=== PATIENT | female | born 1970 | race Caucasian/White ===

== ENCOUNTER 2016-06-05 16:30 | Observation (INO) | payer OTHER, MEDICAID ==
[~2016-06-05] VITALS: Ht 149.9 cm; Wt 77.0 kg
[~2016-06-05 16:30] MED LIST: BACL10TA; BENA25TA8 PO; CETI5SOL PO; HYDR-3533 PO; LEVO.025 PO; MOBI7.5T PO; PRAV10 PO; PRED20 PO; PROZ20CA11 PO; ZOLP1TAB32 PO
[2016-06-05 16:43] VITALS: BP_SYST 136; BP_SYST 153; BP_DIAS 85; BP_DIAS 87; PULSE 72; RESP 18; TEMP 98.1; O2SAT 96
[2016-06-05] MEDS ORDERED: ASPIRIN 81 MG CHEW TAB PO ONE (17:00)
[2016-06-05] MEDS ORDERED: SODIUM CHLORIDE 0.9% FLUSH 5 ML FLUSH IVF PRN ×2 (17:00→19:30)
[2016-06-05] MEDS ORDERED: PRAV20TA2 PO (17:02)
[2016-06-05] MEDS ORDERED: ZYRT10TA PO (17:02)
[2016-06-05] MEDS ORDERED: BACL10TA PO (17:02)
[2016-06-05] MEDS ORDERED: MOBI15TA PO (17:02)
[2016-06-05] MEDS ORDERED: PROZ20CA11 PO (17:02)
[2016-06-05] MEDS ORDERED: AMBI10TA PO (17:02)
[2016-06-05] MEDS ORDERED: HYDR-3533 PO (17:02)
[2016-06-05] MEDS ORDERED: LEVO50TA4 PO (17:02)
--- NOTE | 2016-06-05 17:18 | PD ---
HPI Chief Complaint: Chest Pain Time Seen by Provider: 16:54 Travel History International Travel<30 days: No Contact w/Intl Traveler<30days: No Traveled to known affect area: No History of Present Illness HPI 38-year-old female presents intermittent chest pain over the past month. Patient states her pain started approximately an hour and half prior to arrival was heavy in the middle of her chest radiating down her left arm and having some numbness tingling the left arm. Patient has a history of diabetes and hyperlipidemia. She has been followed emergency medcl emt Dr. Osuna and states her stress test last week and was referred for an exercise stress test which she completed and this supposed to have a repeat nuclear images obtained of her heart in 2 days. Patient cannot clarify further doing rest or stress images. Patient states her pain is currently resolved. She took aspirin 162 mg prior to arrival by EMS. She also endorses mild nausea and mild shortness of breath. PFSH Past Medical History Arthritis: Yes Asthma: No Autoimmune Disease: No Anxiety: Yes Depression: Yes Heart Rhythm Problems: No Cancer: No Cardiovascular Problems: No High Cholesterol: No Chemotherapy: No Chest Pain: No COPD: No Diabetes: Yes Patient Takes Glucophage: No Diminished Hearing: No Endocrine: No Gastrointestinal Disorders: No GERD: Yes Genitourinary: No Hepatitis: No Hiatal Hernia: Yes Hypertension: No Immune Disorder: No Implanted Vascular Access Dvce: No Medical other: No Musculoskeletal: Yes Neurologic: No Psychiatric: No Reproductive: No Respiratory: No Immunizations Current: Yes Myocardial Infarction: No Radiation Therapy: No Sleep Apnea: No Thyroid Disease: Yes Ulcer: Yes Tetanus Vaccination: Unknown ?: Not LMP: 2005 : 4 Para: 3 Past Surgical History Abdominal Surgery: Yes (GASTRIC BYPASS) AICD: No Appendectomy: Yes Cardiac Surgery: No Section: Yes Ear Surgery: No Endocrine Surgery: No Eye Surgery: No Genitourinary Surgery: No Gynecologic Surgery: Yes (PARTIAL HYSTERCTOMY) Hysterectomy: Yes Joint Replacement: Yes (LT KNEE (CRUSH INJURY 2005 )) Neurologic Surgery: No Oral Surgery: No Pacemaker: No Thoracic Surgery: No Other Surgery: Yes Social History Alcohol Use: No Tobacco Use: Yes (1/4 PACK OF CIGS A DAY) Substance Use: No Allergies-Medications (Allergen,Severity, Reaction): Coded Allergies: Adhesives (Verified Allergy, Severe, RASH AND WHELTS, 02/03/16) Latex (Unverified Allergy, Severe, rash, 02/03/16) Penicillin (Verified Allergy, Severe, ANAPHYLAXIS, 02/03/16) ANAPHYLAXIS [place] (Verified Allergy, Severe, Anaphylaxis, 02/03/16) Clindamycin (Verified Allergy, Intermediate, Rash , 02/03/16) Uncoded Allergies: STRAWBERRIES (Allergy, Severe, THROAT SWELLS, 01/15/14) pollen (Adverse Reaction, Severe, Sneezing, 06/16/15) pt states she was recently told she has a severe reaction to pollen Reported Meds & Prescriptions Reported Meds & Active Scripts Active Reported Pravastatin 20 Mg Tab 20 Mg PO HS Baclofen 10 Mg Tab 10 Mg PO HS Zyrtec Allergy (Cetirizine HCl) 10 Mg Tab 10 Mg PO DAILY Mobic (Meloxicam) 15 Mg Tab 15 Mg PO DAILY Levothyroxine (Levothyroxine Sodium) 50 Mcg Tab 50 Mcg PO DAILY Prozac (Fluoxetine HCl) 20 Mg Cap 20 Mg PO DAILY Ambien (Zolpidem Tartrate) 10 Mg Tab 10 Mg PO HS PRN Lortab (Hydrocodone-Acetaminophen) 5-325 Mg Tab 1 Tab PO Q4H PRN Review of Systems Except as stated in HPI: all other systems reviewed are Neg Physical Exam Narrative GENERAL: Well-developed well-nourished, obese but in no apparent distress. SKIN: Warm and dry. HEAD: Atraumatic. Normocephalic. EYES: Pupils equal and round. No scleral icterus. No injection or drainage. ENT: No nasal bleeding or discharge. Mucous membranes pink and moist. NECK: Trachea midline. No JVD. CARDIOVASCULAR: Regular rate and rhythm. No murmur appreciated. 2+ bilaterally equal pulses in all 4 extremities. No edema. RESPIRATORY: No accessory muscle use. Clear to auscultation. Breath sounds equal bilaterally. GASTROINTESTINAL: Abdomen soft, non-tender, nondistended. Hepatic and splenic margins not palpable. MUSCULOSKELETAL: No obvious deformities. No clubbing. No cyanosis. No edema. NEUROLOGICAL: Awake and alert. No obvious cranial nerve deficits. Motor grossly within normal limits. Normal speech. PSYCHIATRIC: Appropriate mood and affect; insight and judgment normal. Data Data Last Documented VS Vital Signs Date Time Temp Pulse Resp B/P Pulse Ox O2 Delivery O2 Flow Rate FiO2 06/05/16 18:48 76 18 132/83 96 Room Air 06/05/16 16:43 98.1 Orders Electrocardiogram (06/05/16 16:57) Ckmb (Isoenzyme) Profile (06/05/16 16:57) Complete Blood Count With Diff (06/05/16 16:57) Comprehensive Metabolic Panel (06/05/16 16:57) Magnesium (Mg) (06/05/16 16:57) Prothrombin Time / Inr (Pt) (06/05/16 16:57) Act Partial Throm Time (Ptt) (06/05/16 16:57) Troponin I (06/05/16 16:57) Lipase (06/05/16 16:57) Chest, Single Ap (06/05/16 16:57) Ecg Monitoring (06/05/16 16:57) Bilateral Bp Monitoring (06/05/16 16:57) Iv Access Insert/Monitor (06/05/16 16:57) Oximetry (06/05/16 16:57) Oxygen Administration (06/05/16 16:57) Aspirin Chew (Aspirin Chew) (06/05/16 17:00) Sodium Chloride 0.9% Flush (Ns Flush) (06/05/16 17:00) Troponin I (06/05/16 19:02) Electrocardiogram (06/05/16 ) Admit Order (Ed Use Only) (06/05/16 ) Labs Laboratory Tests Test 06/05/16 06/05/16 17:15 19:20 White Blood Count 14.1 TH/MM3 Red Blood Count 4.39 MIL/MM3 Hemoglobin 12.3 GM/DL Hematocrit 37.1 % Mean Corpuscular Volume 84.5 FL Mean Corpuscular Hemoglobin 28.1 PG Mean Corpuscular Hemoglobin 33.2 % Concent Red Cell Distribution Width 14.0 % Platelet Count 249 TH/MM3 Mean Platelet Volume 8.8 FL Neutrophils (%) (Auto) 86.5 % Lymphocytes (%) (Auto) 7.4 % Monocytes (%) (Auto) 5.4 % Eosinophils (%) (Auto) 0.6 % Basophils (%) (Auto) 0.1 % Neutrophils # (Auto) 12.2 TH/MM3 Lymphocytes # (Auto) 1.0 TH/MM3 Monocytes # (Auto) 0.8 TH/MM3 Eosinophils # (Auto) 0.1 TH/MM3 Basophils # (Auto) 0.0 TH/MM3 CBC Comment DIFF FINAL Differential Comment Prothrombin Time 10.6 SEC Prothromb Time International 1.0 RATIO Ratio Activated Partial 29.2 SEC Thromboplast Time Sodium Level 139 MEQ/L Potassium Level 3.7 MEQ/L Chloride Level 106 MEQ/L Carbon Dioxide Level 24.9 MEQ/L Anion Gap 8 MEQ/L Blood Urea Nitrogen 9 MG/DL Creatinine 0.65 MG/DL Estimat Glomerular Filtration 97 ML/MIN Rate Random Glucose 97 MG/DL Calcium Level 8.3 MG/DL Magnesium Level 1.8 MG/DL Total Bilirubin 0.3 MG/DL Aspartate Amino Transf 21 U/L (AST/SGOT) Alanine Aminotransferase 29 U/L (ALT/SGPT) Alkaline Phosphatase 145 U/L Total Creatine Kinase 87 U/L Troponin I LESS THAN 0.02 LESS THAN 0.02 NG/ML NG/ML Total Protein 7.2 GM/DL Albumin 3.2 GM/DL Lipase 68 U/L MDM Medical Decision Making Medical Screen Exam Complete: Yes Emergency Medical Condition: Yes Interpretation(s) EKG shows normal sinus rhythm normal axis normal R-wave progression. Flattening of T waves in 3 and aVF. These are nonspecific changes. Intervals within normal limits. This is a borderline EKG. Differential Diagnosis ACS, AMI, pneumonia, PE unlikely. Narrative Course Patient was roomed in emergency department, she appears well in no apparent distress. Chest pain was resolved on arrival. She received 160 mg of aspirin by EMS given another 160 mg of aspirin here. Has not had any chest pain in the emergency department. Initial troponin negative, EKG is borderline. Discussed with Dr. Osuna that the patient had a stress test last week of the nuclear variety and the exercise portion. However her exercise heart rate only achieved 82% of maximum. Enrrique for stress test the predictive need to be 85% of maximum. That is why the she was going to have a repeat nuclear stress test this week. So Dr. Osuna and she recommends admission to the chest pain center for serial troponins and she will see in the morning to make further decisions about management. This is discussed the patient and she is agreeable. Diagnosis Primary Impression: Chest pain Qualified Code: R07.9 - Chest pain, unspecified type Admitting Information Admitting Physician Requests: Observation Condition: Stable Martín Patton MD Jun 05, 2016 17:18 Martín Patton MD Jun 05, 2016 17:18
[2016-06-05 17:28] LABS: AUTOMATED NEUTROPHIL # 12.2 TH/MM3 (1.8-7.7); BASOPHIL % 0.1 % (0.0-2.0); EOSINOPHIL # 0.1 TH/MM3 (0-0.4); EOSINOPHIL % 0.6 % (0.0-4.0); HEMATOCRIT 37.1 % (35.0-46.0); HEMO FLAGS DIFF FINAL; LYMPH % 7.4 % (9.0-44.0); MEAN CELL VOLUME 84.5 FL (80.0-100.0); MEAN CORPUSCULAR HEMOGLOBIN 28.1 PG (27.0-34.0); MEAN CORPUSCULAR HGB CONC 33.2 % (32.0-36.0); MONO % 5.4 % (0.0-8.0); NEUT % 86.5 % (16.0-70.0); PLATELET COUNT 249 TH/MM3 (150-450); RED BLOOD COUNT 4.39 MIL/MM3 (4.00-5.30); WHITE BLOOD COUNT 14.1 TH/MM3 (4.0-11.0)
--- NOTE | 2016-06-05 17:29 | RADRPT ---
EXAM DATE/TIME: 06/05/2016 17:14 [facility] COMPARISON: CHEST SINGLE AP, December 19, 2012, 13:37. INDICATIONS : Chest pain. MEDICAL HISTORY : None. SURGICAL HISTORY : None. ENCOUNTER: Initial ACUITY: 1 month PAIN SCORE: 5/10 LOCATION: Bilateral chest FINDINGS: A single view of the chest demonstrates the lungs to be symmetrically aerated without evidence of mas s, infiltrate or effusion. The cardiomediastinal contours are unremarkable. Osseous structures are intact. CONCLUSION: Normal examination. Dilshad Logan MD on June 05, 2016 at 17:27 Board Certified Radiologist. This report was verified electronically.
[2016-06-05 17:36] VITALS: O2SAT 99
[2016-06-05 17:36] LABS: APTT (PATIENT) 29.2 SEC (24.3-30.1); PROTHROMBIN TIME - PATIENT 10.6 SEC (9.8-11.6)
[2016-06-05 17:38] VITALS: BP 145/86; PULSE 72; RESP 18; O2SAT 97
[2016-06-05 17:55] LABS: ANION GAP 8 MEQ/L (5-15); AST (GOT) 21 U/L (15-37); BICARBONATE 24.9 MEQ/L (21.0-32.0); BLOOD UREA NITROGEN 9 MG/DL (7-18); CHLORIDE 106 MEQ/L (98-107); GLOMERULAR FILTRATION RATE 97 ML/MIN (>89); MAGNESIUM 1.8 MG/DL (1.5-2.5); POTASSIUM 3.7 MEQ/L (3.5-5.1); SODIUM (NA) 139 MEQ/L (136-145)
[2016-06-05 18:00] LABS: ALKALINE PHOSPHATASE 145 U/L (45-117); ALT (GPT) 29 U/L (10-53); TOTAL BILIRUBIN ADULT 0.3 MG/DL (0.2-1.0)
[2016-06-05 18:03] LABS: CREATINE KINASE 87 U/L (26-192)
[2016-06-05 18:48] VITALS: BP 132/83; PULSE 76; RESP 18; O2SAT 96
[2016-06-05] MEDS: NITROGLYCERIN 0.4 MG SL 25 TABS/BTL SL SCH ×2 (20:35→20:40)
[2016-06-05] MEDS ORDERED: SODIUM CHLORIDE 0.9% FLUSH 5 ML FLUSH IVF SCH (21:00)
[2016-06-05 21:20] VITALS: O2SAT 97
[2016-06-05 21:45] VITALS: PULSE 71
[2016-06-05 23:37] LABS: CREATINE KINASE 70 U/L (26-192)
[2016-06-06 00:35] VITALS: PULSE 64
[2016-06-06 01:41] LABS: CREATINE KINASE 67 U/L (26-192)
[2016-06-06 02:49] VITALS: BP 126/78; PULSE 68; RESP 18; TEMP 98.8; O2SAT 93
[2016-06-06 04:40] VITALS: PULSE 82
[2016-06-06 07:38] VITALS: BP 115/80; PULSE 62; RESP 20; TEMP 97.7
[2016-06-06 07:41] VITALS: PULSE 73
--- NOTE | 2016-06-06 08:14 | HHI.DCPOC ---
Discharge Care Plan Diagnosis: (1) Chest pain (2) Hyperlipidemia (3) Tobacco abuse Goals to Promote Your Health * To prevent worsening of your condition and complications * To maintain your health at the optimal level Directions to Meet Your Goals Take your medications as prescribed Follow your dietary instruction Follow activity as directed Keep your appointments as scheduled Take your immunizations and boosters as scheduled If your symptoms worsen call your PCP, if no PCP go to Urgent Care Center or Emergency Room Smoking is Dangerous to Your Health. Avoid second hand smoke Call the 24-hour hour crisis hotline for domestic abuse at Kenny Damico Jun 06, 2016 08:14
--- NOTE | 2016-06-06 09:31 | HHI.HP ---
[facility] Primary Care Physician Dustin Lowe MD Chief Complaint Chest pain History of Present Illness This is a 46-year-old female that presents to the ED via private vehicle complaining of intermittent chest discomfort for about a month. She is found nothing to bring on the discomfort. For the most part they last just a few seconds. A couple times a woke her from her sleep. That concerned her prompting her to see her primary care physician who referred her to Dr. Osuna. A Tal protocol ETT was attempted but was suboptimal at 81%. She is already begun her chemical stress test. She's had a resting images and is scheduled to have her stress images tomorrow. Patient states that yesterday her discomfort lasted longer. Last 15 minutes which concerned her more and she came to the ED for further evaluation. No associated shortness of breath or diaphoresis. Couple time she been nauseous. She thinks at times the discomfort brought on with stressful situations. Denies recent illnesses. Denies fevers or chills. Review of Systems General: Patient denies fevers, chills recent, and recent travel HEENT: Patient denies headache, sore throat, difficulty swallowing. Cardiovascular: Has the chest discomfort as mentioned above. Denies diaphoresis. Denies sensation of heart beating rapidly or irregularly. No syncope. Respiratory: Denies shortness of breath or inspirational chest discomfort. Denies coughing wheezing or hemoptysis. GI: Patient denies nausea, vomiting, diarrhea, abdominal pain, bloody stools. Musculoskeletal: Patient denies joint pain or edema. Denies calf pain or edema. Neurovascular: Patient denies numbness, tingling, weakness in extremities. Denies headache. Endocrine: Denies polyuria and polydipsia. Hematologic: Denies easy bruising. Skin: Denies rash or itching. Past Family Social History Allergies: Coded Allergies: Adhesives (Verified Allergy, Severe, RASH AND WHELTS, 02/03/16) Latex (Unverified Allergy, Severe, rash, 02/03/16) Penicillin (Verified Allergy, Severe, ANAPHYLAXIS, 02/03/16) ANAPHYLAXIS [place] (Verified Allergy, Severe, Anaphylaxis, 02/03/16) Clindamycin (Verified Allergy, Intermediate, Rash , 02/03/16) Uncoded Allergies: STRAWBERRIES (Allergy, Severe, THROAT SWELLS, 01/15/14) pollen (Adverse Reaction, Severe, Sneezing, 06/16/15) pt states she was recently told she has a severe reaction to pollen Past Medical History Hyperlipidemia, hypothyroidism, anxiety, depression, and chronic bilateral knee pain. Denies hypertension, diabetes, and known CAD. Past Surgical History Bilateral knees, hysterectomy, gastric bypass, and appendectomy. Reported Medications Reported Meds & Active Scripts Active Reported Pravastatin 20 Mg Tab 20 Mg PO HS Baclofen 10 Mg Tab 10 Mg PO HS Zyrtec Allergy (Cetirizine HCl) 10 Mg Tab 10 Mg PO DAILY Mobic (Meloxicam) 15 Mg Tab 15 Mg PO DAILY Levothyroxine (Levothyroxine Sodium) 50 Mcg Tab 50 Mcg PO DAILY Prozac (Fluoxetine HCl) 20 Mg Cap 20 Mg PO DAILY Ambien (Zolpidem Tartrate) 10 Mg Tab 10 Mg PO HS PRN Lortab (Hydrocodone-Acetaminophen) 5-325 Mg Tab 1 Tab PO Q4H PRN Active Ordered Medications Current Medications Medications (Trade) Dose Ordered Sig/Shaheed Route Start Time Stop Time Status Last Admin (NS Flush) 2 ml UNSCH PRN IVF 06/05/16 17:00 (NS Flush) 2 ml UNSCH PRN IVF 06/05/16 19:30 (NS Flush) 2 ml BID IVF 06/05/16 21:00 06/05/16 21:00 Family History Her father at age 40 of CAD. Social History Patient smokes between 1 12:45 half pack of cigarettes daily for about 30 years. Denies alcohol or illicit drugs. She states she is disabled secondary to anxiety, depression, and knee issues. Physical Exam Vital Signs Vital Signs Date Time Temp Pulse Resp B/P Pulse Ox O2 Delivery O2 Flow Rate FiO2 06/06/16 07:41 73 06/06/16 07:38 97.7 62 20 115/80 06/06/16 04:40 82 06/06/16 02:49 98.8 68 18 126/78 93 06/06/16 00:35 64 06/05/16 21:45 71 06/05/16 21:20 97 06/05/16 21:01 16 06/05/16 18:48 76 18 132/83 96 Room Air 06/05/16 17:38 72 18 145/86 97 Room Air 06/05/16 17:36 99 Room Air 06/05/16 17:36 99 Room Air 06/05/16 16:51 71 18 98 Room Air 06/05/16 16:43 98.1 72 18 153/87 96 136/85 Physical Exam GENERAL: This is a well-nourished, well-developed patient, in no apparent distress. Patient speaks in clear complete sentences. Patient is pleasant. HEENT: Head is atraumatic and normocephalic. Neck is supple without lymphadenopathy and trachea is midline. No JVD or carotid bruits. CARDIOVASCULAR: Regular rate and rhythm without murmurs, gallops, or rubs. RESPIRATORY: Clear to auscultation. Breath sounds equal bilaterally. No wheezes , rales, or rhonchi. Chest wall is nontender. No use of accessory muscles. GASTROINTESTINAL: Abdomen is nontender, nondistended. Abdomen soft. No obvious pulsatile mass or bruit. No CVA tenderness. Strong femoral pulses bilaterally. Normal bowel sounds in all quadrants. MUSCULOSKELETAL: Patient is moving upper and lower extremities freely. No calf tenderness or edema, no Homans sign. Strong pulses in upper and lower extremities. NEUROLOGICAL: Patient is alert and oriented. Cranial nerves 2-12 are grossly intact. No focal deficits and speech is clear. SKIN: No rash and turgor is normal. Laboratory Laboratory Tests Test 06/05/16 06/05/16 06/05/16 06/06/16 17:15 19:20 22:50 01:00 White Blood Count 14.1 Red Blood Count 4.39 Hemoglobin 12.3 Hematocrit 37.1 Mean Corpuscular Volume 84.5 Mean Corpuscular Hemoglobin 28.1 Mean Corpuscular Hemoglobin 33.2 Concent Red Cell Distribution Width 14.0 Platelet Count 249 Mean Platelet Volume 8.8 Neutrophils (%) (Auto) 86.5 Lymphocytes (%) (Auto) 7.4 Monocytes (%) (Auto) 5.4 Eosinophils (%) (Auto) 0.6 Basophils (%) (Auto) 0.1 Neutrophils # (Auto) 12.2 Lymphocytes # (Auto) 1.0 Monocytes # (Auto) 0.8 Eosinophils # (Auto) 0.1 Basophils # (Auto) 0.0 CBC Comment DIFF FINAL Differential Comment Prothrombin Time 10.6 Prothromb Time International 1.0 Ratio Activated Partial 29.2 Thromboplast Time Sodium Level 139 Potassium Level 3.7 Chloride Level 106 Carbon Dioxide Level 24.9 Anion Gap 8 Blood Urea Nitrogen 9 Creatinine 0.65 Estimat Glomerular Filtration 97 Rate Random Glucose 97 Calcium Level 8.3 Magnesium Level 1.8 Total Bilirubin 0.3 Aspartate Amino Transf 21 (AST/SGOT) Alanine Aminotransferase 29 (ALT/SGPT) Alkaline Phosphatase 145 Total Creatine Kinase 87 70 67 Troponin I LESS THAN 0.02 LESS THAN 0.02 LESS THAN 0.02 LESS THAN 0.02 Total Protein 7.2 Albumin 3.2 Lipase 68 Result Diagram: 06/05/16 1715 06/05/16 1715 Imaging Last Impressions Chest X-Ray 06/05/16 1657 Signed Impressions: Service Date/Time: Sunday, June 05, 2016 17:14 - CONCLUSION: Normal examination. Dilshad Logan MD Course EKGs have sinus rhythm with nonspecific inferior and lateral ST changes. Assessment and Plan Assessment and Plan * Chest pain: Patient had serial cardiac enzymes and EKGs for ruling out purposes. She has been evaluated by Dr. Armando Colin of cardiology and the chest pain center. I have also spoken with Dr. Osuna regarding this patient. At this time she'll be discharged with instructions to go directly to Dr. Osuna's [place] office to complete her chemical stress test. Patient is to remain nothing by mouth. * Hyperlipidemia: Continue current medication. * Hypothyroidism: Continue current medication. * Anxiety/depression: Continue current medication. * Tobacco abuse: Patient has been counseled on the importance of smoking cessation. Patient is stable at this time. She is agreeable to this plan. Kenny Damico Jun 06, 2016 09:31
--- NOTE | 2016-06-06 16:14 | EKG ---
Date Performed: 06/05/2016 Time Performed: 23:06:25 PTAGE: 46 years EKG: Sinus rhythm NONSPECIFIC T-WAVE ABNORMALITY BORDERLINE ECG PREVIOUS TRACING : 06/05/2016 20.32 DOCTOR: Armando Colin Interpretating Date/Time 06/06/2016 16:13:23
--- NOTE | 2016-06-06 16:15 | EKG ---
Date Performed: 06/05/2016 Time Performed: 19:43:54 PTAGE: 46 years EKG: Sinus rhythm NONSPECIFIC T-WAVE ABNORMALITY BORDERLINE ECG PREVIOUS TRACING : 06/05/2016 16.44 Since previous tracing, no significant change noted DOCTOR: Armando Colin Interpretating Date/Time 06/06/2016 16:14:41
--- NOTE | 2016-06-06 16:15 | EKG ---
Date Performed: 06/05/2016 Time Performed: 20:32:57 PTAGE: 46 years EKG: Sinus rhythm NONSPECIFIC T-WAVE ABNORMALITY BORDERLINE ECG PREVIOUS TRACING : 06/05/2016 19.43 Since previous tracing, no significant change noted DOCTOR: Armando Colin Interpretating Date/Time 06/06/2016 16:14:14
--- NOTE | 2016-06-06 16:16 | EKG ---
Date Performed: 06/05/2016 Time Performed: 16:44:06 PTAGE: 46 years EKG: Sinus rhythm NONSPECIFIC T-WAVE ABNORMALITY BORDERLINE ECG INTERPRETATION BASED ON A DEFAULT AGE OF 38 YEARS PREVIOUS TRACING : 03/14/2015 11.38 Since previous tracing, no significant change noted DOCTOR: Armando Colin Interpretating Date/Time 06/06/2016 16:15:05
== END 2016-06-06 10:36 | disposition home or self-care (01) ==
LOC: NEPA 16:30 → NEDA 19:24 → NEPGCP 21:53
PROVIDERS: ADMIT Internal Medicine Interventional Cardiology; ATTEND Internal Medicine Interventional Cardiology
DX: R07.9 Chest pain, unspecified (principal); R20.2 Paresthesia of skin; E78.5 Hyperlipidemia, unspecified; E11.9 Type 2 diabetes mellitus without complications; R11.0 Nausea; R06.02 Shortness of breath; K21.9 Gastro-esophageal reflux disease without esophagitis; K44.9 Diaphragmatic hernia without obstruction or gangrene; F17.210 Nicotine dependence, cigarettes, uncomplicated; Z79.899 Other long term (current) drug therapy; E03.9 Hypothyroidism, unspecified; F32.9 Major depressive disorder, single episode, unspecified; F41.9 Anxiety disorder, unspecified
CPT/HCPCS: 71010; 80053; 82550; 83690; 83735; 84484; 85025; 85610; 85730; 93005; 99285; G0378